=== PATIENT | female | born 1995 | race American Indian/Alaskan Native ===

== ENCOUNTER 2019-04-28 07:59 | Emergency (ER) | payer SELFPAY ==
[2019-04-28 08:05] VITALS: BP 108/68
--- NOTE | 2019-04-28 09:22 | Emergency Department Report ---
ED Dysuria HPI - HPI Chief Complaint: Urogenital-Female Stated Complaint: PAIN WHEN URINING Time Seen by Provider: 04/28/19 09:20 Duration: 2 weeks Location of Discomfort: Suprapubic Severity: Moderate Symptoms: Dysuria: Yes, Frequency: Yes, Suprapubic Pain: Yes, Flank Pain: No, Fever: No, Hematuria: No, Abdominal Pain: No, Previous UTI's: No Other History: This is a 23-year-old female presents ED complaining of pain with urination and hematuria patient stated symptoms started about 2 weeks ago. Patient states she has not been able to seek care because of work and symptoms are getting worse. She denies abdominal pain, pelvic pain, vaginal bleeding or any fever or any other problems ED Review of Systems ROS: Stated complaint: PAIN WHEN URINING Other details as noted in HPI Comment: All other systems reviewed and negative ED Past Medical Hx - Past Medical History Previous Medical History?: No - Surgical History Past Surgical History?: No - Social History Smoking Status: Never Smoker Substance Use Type: None - Medications Home Medications: Home Medications Medication Instructions Recorded Confirmed Last Taken Type Ciprofloxacin HCl [Ciprofloxacin 500 mg PO Q12HR #14 tab 04/28/19 Unknown Rx TAB] Dysuria Exam - Exam General: Vital signs noted. No distress. Alert and acting appropriately. Exam: Yes Moist Mucous Membranes, No CVA Tenderness, No Abdominal Tenderness, No Rigidity or Guarding ED Course Vital Signs 04/28/19 08:04 Temperature 98.3 F Pulse Rate 65 Respiratory 16 Rate Blood Pressure 108/68 O2 Sat by Pulse 100 Oximetry ED Medical Decision Making - Medical Decision Making 23-year-old female presents with a UTI Urinalysis positive for UTI, negative test Discussed with patient to follow-up with primary care physician in 3 to 5 days. Vital signs are normal patient is in no acute distress Critical care attestation.: If time is entered above; I have spent that time in minutes in the direct care of this critically ill patient, excluding procedure time. ED Disposition Clinical Impression: UTI (urinary tract infection), Acute cystitis Disposition: MED SCREENING EXAM-LEFT Is pt being admited?: No Does the pt Need Aspirin: No Condition: Stable Instructions: Urinary Tract Infection in Women (ED) Additional Instructions: Make sure to follow up with the primary care physician as discussed. Take all your medications as you've been prescribed. If you have any worsening symptoms or develop new symptoms please return to ED immediately. Prescriptions: Ciprofloxacin HCl [Ciprofloxacin TAB] 500 mg PO Q12HR #14 tab Referrals: PRIMARY CARE, [Primary Care Provider] - 3-[address] [facility] [Outside] - 3-5 Days [facility] [Outside] - 3-5 Days [facility] [Outside] - 3-[address] [facility] [Outside] - 3-5 Days Forms: Work/School Release Form(ED) Time of Disposition: 09:57
[2019-04-28 09:51] LABS: Bacteria,Urine 1+ /HPF (Negative); Bilirubin,Urine NEG (Negative); Blood,Urine LG (Negative); Color,Urine Yellow (Yellow); Mucus,Urine FEW /HPF; Urobilinogen,Urine < 2.0 mg/dL (<2.0)
[2019-04-28 09:53] LABS: WBC,Urine > 182.0 /HPF (0.0-6.0)
[2019-04-28 09:54] LABS: HCG Qualitative,Urine Negative (Negative)
== END 2019-04-28 10:05 | disposition left against medical advice (07) ==
LOC: ED 07:59
DX: N39.0 Urinary tract infection, site not specified (principal); N30.20 Other chronic cystitis without hematuria
CPT/HCPCS: 81001; 81025; 99283